=== PATIENT | female | born 1980 | race Caucasian/White ===

== ENCOUNTER 2017-01-16 08:39 | Emergency (ER) | payer BC ==
[2017-01-16 09:04] VITALS: TEMP 98.1
[2017-01-16] MEDS ORDERED: OXYMETAZOLINE 0.05% NASL SPRAY 1 SPRAY BOTTLE NASAL STA (09:18)
--- NOTE | 2017-01-16 09:34 | ED ---
General Adult HPI - General Chief complaint: ENT Stated complaint: sinus infection, FB in nose Time Seen by Provider: 01/16/17 09:07 Source: patient, RN notes reviewed Mode of arrival: ambulatory Limitations: no limitations - History of Present Illness Initial comments: 36-year-old female presents to the emergency department with chief complaint of Rhino Rocket in the nose. Patient states on Friday she had a nosebleed in the past in midline. Patient states she is here to have it out. Patient states she is having some sinus congestion and drainage since this was placed. Patient states there is been no fevers. Patient states she's not having any other symptoms at this time. They're concerned due to just meaning that removed. Patient denies any recent fever, chills, shortness of breath, chest pain, back pain, abdominal pain, nausea vomiting, numbness or tingling, dysuria or hematuria, constipation or diarrhea, headaches or visual changes, or any other current symptoms. - Related Data Home Medications Medication Instructions Recorded Confirmed [id number] 1 - 2 tab PO Q4HR PRN 01/16/17 01/16/17 [Excedrin] Fish Oil/Dha/Epa [Fish Oil 1,200 1 cap PO DAILY 01/16/17 01/16/17 mg Fish Oil] Levothyroxine Sodium [Synthroid] 125 mcg PO DAILY 01/16/17 01/16/17 NIFEdipine [NIFEdipine ER] 30 mg PO DAILY 01/16/17 01/16/17 Allergies Allergy/AdvReac Type Severity Reaction Status Date / Time grass pollen Allergy Dyspnea Verified 01/16/17 09:14 milk AdvReac "WHITE Verified 01/16/17 09:14 FOAM ON TONGUE" Review of Systems ROS Statement: Those systems with pertinent positive or pertinent negative responses have been documented in the HPI. ROS Other: All systems not noted in ROS Statement are negative. Past Medical History Past Medical History: Hypertension Additional Past Medical History / Comment(s): aime History of Any Multi-Drug Resistant Organisms: None Reported Past Surgical History: No Surgical Hx Reported Past Psychological History: No Psychological Hx Reported Smoking Status: Never smoker Past Alcohol Use History: None Reported Past Drug Use History: None Reported General Exam Limitations: no limitations General appearance: alert, in no apparent distress Head exam: Present: atraumatic, normocephalic, normal inspection ENT exam: Present: other (Rhino Rocket in place.) Neck exam: Present: normal inspection. Absent: tenderness, meningismus, lymphadenopathy Respiratory exam: Present: normal lung sounds bilaterally. Absent: respiratory distress, wheezes, rales, rhonchi, stridor Cardiovascular Exam: Present: regular rate, normal rhythm, normal heart sounds. Absent: systolic murmur, diastolic murmur, rubs, gallop, clicks Neurological exam: Present: alert, oriented X3 Psychiatric exam: Present: normal affect, normal mood Skin exam: Present: warm, dry, intact, normal color. Absent: rash Course Vital Signs 01/16/17 08:59 Temperature 98.1 F Pulse Rate 95 Respiratory 18 Rate Blood Pressure 122/77 O2 Sat by Pulse 100 Oximetry Medical Decision Making - Medical Decision Making 36-year-old female presents emergency room chief complaint have the Rhino Rocket removed. Rhino Rocket was removed the patient did start to bleed. This time the patient is clamped with Afrin to see how she progresses. Patient was cauterized. Bleeding has subsided. We discussed closed follow up with PCP. Return parameters and all patients questions. SHe is in agreement with this plan. SHe will be discharged home. return parameters discussed. Disposition Clinical Impression: Epistaxis Disposition: HOME SELF-CARE Condition: Stable Instructions: Nosebleed (ED) Additional Instructions: Please use medication as discussed. Please follow up with family doctor if symptoms have not improved over the next two days. Please return to the emergency room if your symptoms increase or worsen or for any other concerns. Referrals: Camille Galvan MD [Primary Care Provider] - 1-2 days Jhonatan Ya MD [STAFF PHYSICIAN] - 1-2 days Time of Disposition: 10:42
[2017-01-16] MEDS ORDERED: SILVER NITRATE APPLICATOR 1 EACH STICK..EA. TOPICAL STA (10:04)
[2017-01-16 11:03] VITALS: BP 143/92; PULSE 87; RESP 16
== END 2017-01-16 11:03 | disposition home or self-care (01) ==
LOC: EC 08:39
DX: R04.0 Epistaxis (principal); R09.81 Nasal congestion; J34.89 Other specified disorders of nose and nasal sinuses; I10 Essential (primary) hypertension; E06.3 Autoimmune thyroiditis; Z79.899 Other long term (current) drug therapy; Z91.011 Allergy to milk products; Z91.09 Other allergy status, other than to drugs and biological substances
CPT/HCPCS: 30901; 99282

== ENCOUNTER 2017-06-21 09:15 | Emergency (ER) | payer BC ==
[2017-06-21] MEDS ORDERED: HYDROcodone/APAP 5-325MG 1 EACH TAB PO STA (09:34)
[2017-06-21] MEDS ORDERED: CYCLOBENZAPRINE 10 MG TAB PO STA (09:34)
--- NOTE | 2017-06-21 10:06 | ED ---
Back Pain HPI - General Chief Complaint: Back Pain/Injury Stated Complaint: slip and fall Time Seen by Provider: 06/21/17 09:22 Source: patient, EMS, RN notes reviewed Mode of arrival: EMS Limitations: physical limitation - History of Present Illness Initial Comments: This a 37-year-old female presents emergency department via EMS for a fall patient states that she was leaving her house in which she slipped on ice. She states her lites over the sidewalk. She states she laid on the ground for approximately 10 minutes to catch her breath and states ice felt better on her back. Patient states that she had no head injury no loss conscious. She complains of lower back pain and pain towards her buttocks. Patient states that she seems to be stiffening up in symptoms or worsening. Denies any pain and rates are moist denies saddle anesthesias, lower extremity paresthesia and denies any bowel incontinence or retention. Patient did not take any medications prior arrival. - Related Data Home Medications Medication Instructions Recorded Confirmed [id number] 1 - 2 tab PO Q4HR PRN 01/16/17 01/16/17 [Excedrin] Fish Oil/Dha/Epa [Fish Oil 1,200 1 cap PO DAILY 01/16/17 01/16/17 mg Fish Oil] Levothyroxine Sodium [Synthroid] 125 mcg PO DAILY 01/16/17 01/16/17 NIFEdipine [NIFEdipine ER] 30 mg PO DAILY 01/16/17 01/16/17 Previous Rx's Medication Instructions Recorded Cyclobenzaprine [Flexeril] 10 mg PO TID PRN #15 tab 06/21/17 Hydrocodone/Acetaminophen [Braham 1 tab PO Q6HR PRN #20 tab 06/21/17 5-325] Allergies Allergy/AdvReac Type Severity Reaction Status Date / Time grass pollen Allergy Dyspnea Verified 06/21/17 09:24 milk AdvReac "WHITE Verified 06/21/17 09:24 FOAM ON TONGUE" Review of Systems ROS Statement: Those systems with pertinent positive or pertinent negative responses have been documented in the HPI. ROS Other: All systems not noted in ROS Statement are negative. Past Medical History Past Medical History: Hypertension, Thyroid Disorder Additional Past Medical History / Comment(s): aime History of Any Multi-Drug Resistant Organisms: None Reported Past Surgical History: No Surgical Hx Reported Past Psychological History: No Psychological Hx Reported Smoking Status: Never smoker Past Alcohol Use History: None Reported Past Drug Use History: None Reported General Exam Limitations: physical limitation General appearance: alert, in no apparent distress Eye exam: Present: normal appearance, PERRL, EOMI. Absent: scleral icterus, conjunctival injection, periorbital swelling ENT exam: Present: normal exam, normal oropharynx, mucous membranes moist Neck exam: Present: normal inspection, full ROM. Absent: tenderness, meningismus, lymphadenopathy Respiratory exam: Present: normal lung sounds bilaterally. Absent: respiratory distress, wheezes, rales, rhonchi, stridor Cardiovascular Exam: Present: regular rate, normal rhythm, normal heart sounds. Absent: systolic murmur, diastolic murmur, rubs, gallop, clicks GI/Abdominal exam: Present: soft, normal bowel sounds. Absent: distended, tenderness, guarding, rebound, rigid Extremities exam: Present: normal inspection, full ROM, normal capillary refill. Absent: tenderness, pedal edema, joint swelling, calf tenderness Back exam: Present: tenderness (Tenderness lumbar region diffusely), paraspinal tenderness, vertebral tenderness, other (No thoracic tenderness ). Absent: full ROM, CVA tenderness (R), CVA tenderness (L) Neurological exam: Present: alert, oriented X3, CN II-XII intact, reflexes normal. Absent: motor sensory deficit Course Vital Signs 06/21/17 09:21 Temperature 97.0 F L Pulse Rate 77 Respiratory 18 Rate Blood Pressure 159/95 O2 Sat by Pulse 97 Oximetry Medical Decision Making - Medical Decision Making 37-year-old female presented for sore for slip and fall. Patient's x-ray shows , depression fracture wedging at L1 1. Patient states that she had no prior injuries. Radiologist does feel this is chronic though it may be acute secondary to her injury and her location of pain. Patient referred to Dr. Ramirez and return for any worsening symptoms. Disposition Clinical Impression: Fall from slipping on ice, Back pain, Compression fx, lumbar spine Disposition: HOME SELF-CARE Condition: Stable Instructions: Vertebral Compression Fracture (ED) Additional Instructions: Please return to the Emergency Department if symptoms worsen or any other concerns. Prescriptions: Cyclobenzaprine [Flexeril] 10 mg PO TID PRN #15 tab PRN Reason: Muscle Spasm Hydrocodone/Acetaminophen [Braham 5-325] 1 tab PO Q6HR PRN #20 tab PRN Reason: Pain Referrals: Camille Galvan MD [Primary Care Provider] - 1-2 days Tha Ramirez DO [Doctor of Osteopathic Medicine] - 1-2 days Time of Disposition: 11:15
--- NOTE | 2017-06-21 10:26 | XR ---
EXAMINATION TYPE: XR pelvis AP view , ONE VIEW DATE OF EXAM ORDERED: 06/21/2017 HISTORY: Pain. COMPARISON: None. FINDINGS: Osseous structures about the pelvis appear normal. No fractures are seen. Both hip joints are maintained. IMPRESSION: NO ACUTE OSSEOUS LESION.
--- NOTE | 2017-06-21 10:27 | XR ---
EXAMINATION TYPE: XR lumbosacral spine min 4V , 5 VIEWS DATE OF EXAM ORDERED: 06/21/2017 HISTORY: Pain. COMPARISON: None. FINDINGS: There is mild wedging of the T1 vertebral body. The age of this is not determined but it a ppears chronic. Vertebral body height is otherwise maintained. There is no spondylolysis or spondylol isthesis. The facets are unremarkable. The pedicles are intact. IMPRESSION: MILD WEDGING OF THE L1 VERTEBRAL BODY, AGE INDETERMINATE. I DO SUSPECT IT IS CHRONIC.
[2017-06-21 11:43] VITALS: BP 146/69; PULSE 80; RESP 16; TEMP 98.4
== END 2017-06-21 11:48 | disposition home or self-care (01) ==
LOC: EC 09:15
DX: S32.010A Wedge compression fracture of first lumbar vertebra, initial encounter for closed fracture (principal); E07.0 Hypersecretion of calcitonin; Z79.899 Other long term (current) drug therapy; Z91.011 Allergy to milk products; Z91.09 Other allergy status, other than to drugs and biological substances; W00.0XXA Fall on same level due to ice and snow, initial encounter; Y93.K1 Activity, walking an animal
CPT/HCPCS: 72110; 72170; 99283

== ENCOUNTER 2020-09-23 06:24 | Emergency (ER) | payer BC ==
[2020-09-23 06:33] VITALS: BP 176/109; PULSE 96; RESP 20; TEMP 97.9
[2020-09-23] MEDS ORDERED: LIDOCAINE/EPINEPHR/TETRACAINE 5 ML BOTTLE TOPICAL STA (06:47)
[2020-09-23] MEDS ORDERED: OXYMETAZOLINE 0.05% NASL SPRAY 1 SPRAY BOTTLE NASAL STA (06:47)
--- NOTE | 2020-09-23 06:58 | ED ---
General Adult HPI - General Chief complaint: ENT Stated complaint: Nose Bleed Time Seen by Provider: 09/23/20 06:33 Source: patient, RN notes reviewed Mode of arrival: ambulatory Limitations: no limitations - History of Present Illness Initial comments: 40-year-old female with a past medical history of hypertension, thyroid disorder presents to the emergency room for chief complaint of nosebleed. Patient reports she had a nosebleed starting a few days ago on and off. States that it has been happening when she wakes up in the morning. States that today was worse so she came in. She states she is bleeding out of the right side of the nose. Patient reports she had to have cautery at one point for this in the past. Patient did not take her blood pressure medication today. She does have it with her and will take it.Patient has no other complaints at this time including shortness of breath, chest pain, abdominal pain, nausea or vomiting, headache, or visual changes. - Related Data Home Medications Medication Instructions Recorded Confirmed [id number] 1 - 2 tab PO Q4HR PRN 01/16/17 01/16/17 [Excedrin] Fish Oil/Dha/Epa [Fish Oil 1,200 1 cap PO DAILY 01/16/17 01/16/17 mg Fish Oil] Levothyroxine Sodium [Synthroid] 125 mcg PO DAILY 01/16/17 01/16/17 NIFEdipine [NIFEdipine ER] 30 mg PO DAILY 01/16/17 01/16/17 Previous Rx's Medication Instructions Recorded Cyclobenzaprine [Flexeril] 10 mg PO TID PRN #15 tab 06/21/17 Hydrocodone/Acetaminophen [Sutton 1 tab PO Q6HR PRN #20 tab 06/21/17 5-325] Allergies Allergy/AdvReac Type Severity Reaction Status Date / Time grass pollen Allergy Dyspnea Verified 09/23/20 06:32 milk AdvReac "WHITE Verified 09/23/20 06:32 FOAM ON TONGUE" Review of Systems ROS Statement: Those systems with pertinent positive or pertinent negative responses have been documented in the HPI. ROS Other: All systems not noted in ROS Statement are negative. Past Medical History Past Medical History: Hypertension, Thyroid Disorder Additional Past Medical History / Comment(s): aime, nose bleeds History of Any Multi-Drug Resistant Organisms: None Reported Past Surgical History: No Surgical Hx Reported Past Psychological History: No Psychological Hx Reported Smoking Status: Never smoker Past Alcohol Use History: None Reported Past Drug Use History: None Reported General Exam Limitations: no limitations General appearance: alert, in no apparent distress Head exam: Present: atraumatic, normocephalic, normal inspection Eye exam: Present: normal appearance, PERRL, EOMI. Absent: scleral icterus, conjunctival injection, periorbital swelling ENT exam: Present: normal exam, normal oropharynx (no blood in posterior oropharynx), mucous membranes moist, other (minimal bleeding right nare, no visualized area for cautery.) Neck exam: Present: normal inspection, full ROM. Absent: tenderness, meningismus, lymphadenopathy Respiratory exam: Present: normal lung sounds bilaterally. Absent: respiratory distress, wheezes, rales, rhonchi, stridor Cardiovascular Exam: Present: regular rate, normal rhythm, normal heart sounds. Absent: systolic murmur, diastolic murmur, rubs, gallop, clicks GI/Abdominal exam: Present: soft, normal bowel sounds. Absent: distended, tenderness, guarding, rebound, rigid Course Vital Signs 09/23/20 06:28 Temperature 97.9 F Pulse Rate 96 Respiratory 20 Rate Blood Pressure 176/109 O2 Sat by Pulse 99 Oximetry Medical Decision Making - Medical Decision Making hypertensive on presentation to the emergency room. Patient does have a history of this and does have multiple medications. She has minimal nosebleed out of the right nare. She is otherwise well-appearing. Afrin and let solution was applied as well as nasal clamp for 20 minutes. This did stop the bleeding. Patient was able to ambulate around the department without recurrence of bleeding. I do not see anywhere to cauterize on exam. Patient's repeat blood pressure is 161/109. Patient just took her home medication Losartan here in the emergency room. Her next BP med is due at noon. She does not want any other blood pressure medication as she states it can drop her blood pressure. She will follow up with ENT and primary care. She'll return here for any worsening symptoms. Pt previously saw Dr Jenkins and Dr Sanchez office. Will give referral to this ENT Disposition Clinical Impression: Epistaxis, Hypertension Disposition: HOME SELF-CARE Condition: Good Instructions (If sedation given, give patient instructions): Nosebleed (ED), Hypertension (ED) Additional Instructions: please continue to take your blood pressure medication. If bleeding starts again, clamp for 20 minutes. If it does not stop return to the ER. Otherwise follow up with primary care and ENT. Is patient prescribed a controlled substance at d/c from ED?: No Referrals: Camille Galvan MD [Primary Care Provider] - 1-2 days Christiano Jenkins DO [Doctor of Osteopathic Medicine] - 1-2 days Time of Disposition: 07:43
== END 2020-09-23 08:10 | disposition home or self-care (01) ==
LOC: EC 06:24
DX: R04.0 Epistaxis (principal); I10 Essential (primary) hypertension; E07.9 Disorder of thyroid, unspecified; Z79.890 Hormone replacement therapy; Z79.899 Other long term (current) drug therapy; Z91.048 Other nonmedicinal substance allergy status; Z91.011 Allergy to milk products
CPT/HCPCS: 99283

== ENCOUNTER → 2020-09-29 | Outpatient (CLI) | payer BC | END | disposition home or self-care (01) | LOC: LABWHC1 09:34 | PROVIDERS: ATTEND Otolaryngology | DX: K11.7 Disturbances of salivary secretion (principal); H04.123 Dry eye syndrome of bilateral lacrimal glands | CPT/HCPCS: 36415; 86235 ==

== ENCOUNTER → 2020-10-19 | Outpatient (CLI) | payer BC ==
--- NOTE | 2020-10-20 09:17 | MM ---
Reason for exam: clinical finding. History: Took hormonal contraceptives beginning at age 22. Physical Findings: Nurse did not find any significant physical abnormalities on exam. MG 3D Diag Mammo W/Cad GUIDO Bilateral CC and MLO view(s) were taken. The breast tissue is extremely dense which could obscure a lesion on mammography. These results were verbally communicated with the patient and result sheet given to the patient on 10/19/20. ASSESSMENT: Incomplete: need additional imaging evaluation, BI-RAD 0 RECOMMENDATION: Ultrasound of the right breast. (palpable lump)
--- NOTE | 2020-10-20 09:19 | USB ---
Reason for exam: additional evaluation requested from abnormal screening. History: Took hormonal contraceptives beginning at age 22. US Breast Axilla RT Right breast axilla ultrasound demonstrates no cystic or solid lesion seen. No sonographic finding. These results were verbally communicated with the patient and result sheet given to the patient on 10/19/20. ASSESSMENT: Benign, BI-RAD 2 RECOMMENDATION: Routine screening mammogram of both breasts in 1 year.
== END | disposition home or self-care (01) ==
LOC: RADMAMWWP 13:41
PROVIDERS: ATTEND Internal Medicine
DX: N64.59 Other signs and symptoms in breast (principal)
CPT/HCPCS: 77062; 77066

== ENCOUNTER → 2021-11-26 | Outpatient (CLI) | payer BC | END | disposition home or self-care (01) | LOC: LABWHC1 16:14 | PROVIDERS: ATTEND Family Medicine | DX: I10 Essential (primary) hypertension (principal); E03.9 Hypothyroidism, unspecified | CPT/HCPCS: 36415; 84443 ==

== ENCOUNTER → 2022-08-29 | Outpatient (CLI) | payer BC ==
--- NOTE | 2022-08-30 08:27 | MM ---
Reason for Exam: Screening (asymptomatic). Last mammogram was performed 1 year(s) and 10 month(s) ago. Patient History: Menarche at age 11. Patient has no children. Premenopausal. Hormonal Contraceptives, from age 22 until age 25. Last menstrual period: 08/08/2022 Risk Values: Jazmin 5 year model risk: 0.7%. NCI Lifetime model risk: 12.1%. Prior Study Comparison: 10/19/2020 Bilateral Diagnostic Mammogram, [facility]. Tissue Density: The breast tissue is extremely dense which could obscure a lesion on mammography. Findings: Analyzed By CAD. There are a few benign-appearing punctate calcifications redemonstrated throughout the bilateral breasts. There is no suspicious new group of microcalcifications or new suspicious mass in either breast. Overall Assessment: Negative, BI-RAD 1 Management: Screening Mammogram of both breasts in 1 year. A clinical breast exam by your physician is recommended on an annual basis and results should be correlated with mammographic findings. Electronically signed and approved by: Bereket Ritter M.D.
== END | disposition home or self-care (01) ==
LOC: RADMAMWWP 16:51
PROVIDERS: ATTEND Family Medicine
DX: Z12.31 Encounter for screening mammogram for malignant neoplasm of breast (principal)
CPT/HCPCS: 77063; 77067

== ENCOUNTER → 2024-12-30 | Outpatient (CLI) | payer BC ==
--- NOTE | 2024-12-31 17:05 | MM ---
Reason for Exam: Screening (asymptomatic). Last mammogram was performed 2 year(s) and 4 month(s) ago. Patient History: Menarche at age 11. Patient has no children. Premenopausal. Hormonal Contraceptives, from age 22 until age 25. Risk Values: Jazmin 5 year model risk: 0.8%. NCI Lifetime model risk: 11.9%. Prior Study Comparison: 10/19/2020 Bilateral Diagnostic Mammogram, [facility]. 08/29/2022 Bilateral MG 3D screening mammo w/cad, [facility]. Tissue Density: The breasts are heterogeneously dense, which may obscure small masses. Findings: Analyzed By CAD. There is no suspicious group of microcalcifications or new suspicious mass in either breast. Overall Assessment: Benign, BI-RAD 2 Management: Screening Mammogram of both breasts in 1 year. Patient should continue monthly self-breast exams. A clinical breast exam by your physician is recommended on an annual basis. This exam should not preclude additional follow-up of suspicious palpable abnormalities. Note on Jazmin scores and lifetime risk: 1. A Jazmin score greater than 3% is considered moderate risk. If this is the case, consider specialist referral to assess eligibility for a risk reducing agent. 2. If overall lifetime risk for the development of breast cancer is 20% or higher, the patient may qualify for future screening with alternating mammogram and breast MRI. [facility], , 12/31/2024 5:02 PM. Electronically signed and approved by: Floresita Westfall M.D. Radiologist
== END | disposition home or self-care (01) ==
LOC: RADMAMWWP 15:40
PROVIDERS: ATTEND Family Medicine
DX: Z12.31 Encounter for screening mammogram for malignant neoplasm of breast (principal); R92.333 Mammographic heterogeneous density, bilateral breasts; Z92.0 Personal history of contraception
CPT/HCPCS: 77063; 77067